=== PATIENT | female | born 1965 | race Caucasian/White ===

== ENCOUNTER 2022-08-10 13:42 | Outpatient (CLI) | payer OTHER, SELFPAY ==
--- NOTE | 2022-08-10 14:00 | CRLHL7_ITS ---
For Patients: As a result of the Century Cures Act, medical imaging exams and procedure reports are released immediately into your electronic medical record. You may view this report before your referring provider. If you have questions, please contact your health care provider. Indication: Splenic lesion Technique: Postcontrast CT abdomen and pelvis. 147 cc Isovue 370 intravenous contrast. Please note that all CT scans at this facility use dose modulation, iterative reconstruction, and/or weight-based dosing when appropriate to reduce radiation dose to as low as reasonably achievable. Comparison: 01/02/2022 Findings: Lung bases are clear. Stable low-attenuation lesion within the right hepatic lobe measuring 1.6 cm. Stable hypo dense splenic lesions measuring up to 3.1 cm. Small hiatal hernia. Pancreas normal. Normal gallbladder. Normal adrenal glands and right kidney. Stable punctate calcifications left kidney. Mildly prominent central mesenteric lymph nodes are similar. Normal uterus, ovaries and bladder. Tubal ligation devices. No bowel obstruction or free air. No free fluid. Stable appearance of the lower anterior abdominal wall. Degenerative changes lumbar spine at L4-5 and L2-3. Impression: No significant interval change in multiple splenic lesions measuring up to 3.1 cm. Stable benign-appearing intrahepatic lesion measuring 1.6 cm, hemangioma or cyst. No significant interval change in mildly prominent central mesenteric lymph nodes. Please note that all CT scans at this facility use dose modulation, iterative reconstruction, and/or weight-based dosing when appropriate to reduce radiation dose to as low as reasonably achievable. Dictated by Ismael Paez MD @ 08/13/2022 12:30:34 PM (Electronically Signed)
--- OUTSIDE RECORDS SUMMARY | 2022-08-10 14:14 | XMS_ITS | Clinical Summary ---
:1965 Author Organization [facility] [place] [address] Care Team Providers Name Role Phone Ismael Louise MD Primary Care Provider Allergies Active Allergy Reactions Severity Noted Date Comments Adhesive Tape-Silicones Hives 01/06/2012 Aspirin GI Upset 02/17/2019 Cat Dander Itching 01/06/2012 Metformin Diarrhea 09/16/2015 Azithromycin Rash 09/24/2014 Medications Medication Sig Dispensed Refills Start Date End Date Status valsartan-hydrochlor Take 1 tablet by 90 tablet 3 08/16/2020 Active othiazide (DIOVAN mouth once daily. HCT) 160-25 mg per tabletIndications: HTN (hypertension) apixaban (ELIQUIS) 5 Take 1 Tablet (5 60 Tablet 9 01/30/2022 Active mg mg) by mouth 2 tabletIndications: times daily. PAF (paroxysmal atrial fibrillation) (HC) furosemide (LASIX) Take 1 Tablet (20 5 Tablet 0 03/06/2022 Active 20 mg mg) by mouth once tabletIndications: daily. For 3 days SOB (shortness of for shortness of breath) breath. potassium chloride Take 1 Tablet (20 5 Tablet 0 03/06/2022 Active (KLOR-CON M20) 20 mEq) by mouth once mEq Extended-Release daily with a meal. tabletIndications: Only take this SOB (shortness of medication on the breath) days you take Lasix. sotaloL (BETAPACE) Take 1 Tablet (80 180 Tablet 1 04/07/2022 Active 80 mg mg) by mouth in the tabletIndications: morning and 1 PAF (paroxysmal Tablet (80 mg) in atrial fibrillation) the evening. (HC) Active Problems Problem Noted Date Skin lesion 04/20/2018 Personal history of colonic polyps 06/11/2016 Varicose veins of left leg with edema 05/22/2016 Lumbar disc herniation with radiculopathy 10/10/2015 HTN (hypertension) 09/24/2014 Obesity 09/24/2014 Immunizations Name Administration Dates Next Due Influenza, IIV4 06/24/2016 Tdap 09/16/2015 Family History Medical History Relation Name Comments Hypertension Father Cancer-breast Maternal Aunt 1 Cancer-breast Maternal Aunt 2 Cancer-breast Mother x2 Relation Name Status Comments Brother Alive x2 Daughter Alive x1 Father Alive Maternal Aunt 1 Maternal Aunt 2 Maternal Grandfather Maternal Grandmother Mother Alive Paternal Grandfather Paternal Grandmother Sister Alive x1 Social History Tobacco Use Types Packs/Day Years Used Date Never Smoker Smokeless Tobacco: Never Used Tobacco Cessation: Counseling Given: Yes Alcohol Use Standard Drinks/Week Comments Yes 0 (1 standard drink = 0.6 oz pure alcoho l) 1-2 drinks weekly Alcohol Habits Answer Date Recorded How often do you have a drink containing alcohol? Not asked How many drinks containing alcohol do you have on a Not aske d typical day when you are drinking? How often do you have six or more drinks on one Not asked occasion? Comment: 1-2 drinks weekly 12/25/2021 Sex Assigned at Date Recorded Not on file Obstetrics History Para Term AB IAB SAB Ectopic Multiple Living Live Births 2 1 1 1 1 1 Date Outcome GA Total Labor/2nd/3rd Weight Sex Delivery Anes PTL Amalia A 1 A5 Name Clin Labor Term SAB Last Filed Vital Signs Vital Sign Reading Time Taken Comments Blood Pressure 124/74 03/04/2022 10:30 AM CDT Pulse 60 03/04/2022 10:30 AM CDT Temperature 36 ??C (96.8 ??F) 03/04/2022 10:30 AM CDT Respiratory Rate 18 03/04/2022 10:30 AM CDT Oxygen Saturation 100% 03/04/2022 10:30 AM CDT Inhaled Oxygen Concentration - - Weight 140 kg (308 lb 9.6 oz) 03/04/2022 7:24 AM CDT Height 170.2 cm (5' 7) 03/04/2022 7:24 AM CDT Body Mass Index 48.33 03/04/2022 7:24 AM CDT Plan of Treatment Health Maintenance Due Date Last Done Comments HIV for age 15-65 1980 Hepatitis C screening for age 0905/25/1983 18-79 Zoster (shingles) series for age 0905/25/2015 50+ (1 of 2) Depression screening for age 12+ 04/02/2017 04/02/2016 Mammogram for age 45-75 05/22/2017 05/22/2016, 05/23/2015, 05/21/2014 COVID-19 vaccine series (3 - 02/15/2021 12/21/2020, 021 Booster for Pfizer series) Lipids for age 45-75 05/22/2021 05/22/2016, 05/02/2015 Influenza for age 50-64 05/07/2022 06/24/2016 BMI (ht and wt on same day) for 12/04/2022 12/04/2021, 06/0 11/2020, age 18+ 09/19/2020, Additional history exists Pap test for age 21-65 10/24/2024 10/24/2021, 10/24/2021, 03/06/2014 ([facility]) Tetanus booster 09/16/2025 09/16/2015 Colonoscopy through age 75 11/12/2026 11/12/2021, 6, 06/10/2016, Additional history exists Tdap Completed 09/16/2015 Results Not on filefrom Last 3 Months Insurance Payer Benefit Plan / Subscriber ID Effective Dates Phone Addre ss Type Group [employer] [id number] 2017-Presen [address] [place] [address] BLUE [employer]OSS [employer] OF [id number] 2014-Presen [address] [place] [address] (Home) [place], [place] [phone] (Work) Rohini Mckenna Personal/Family Self [address] (Home) [place] [phone] (Work) Advance Directives Latest Code Status on File Code Status Date Activated Date Inactivated Comments Full Code 03/04/2022 8:23 AM 03/04/2022 8:05 PM Code Status Discussion: Reviewed Preferences Full Code 11/12/2021 6:42 AM 11/12/2021 11:37 AM Code Status Discussion: Per Existing Order Full Code 10/14/2020 3:20 PM 10/15/2020 12:04 PM Code Status Discussion: Discussed Care Teams Gravel Wheeler Relationship Specialty Start Date End Date Ismael Louise MD PCP - General Family Practice 02/06/211999 [place] [address]
== END 2022-08-10 13:43 | disposition home or self-care (01) ==
LOC: CT 13:45
PROVIDERS: PCP Family Medicine; Visit Provider Family Medicine
DX: D73.89 Other diseases of spleen (principal); K76.9 Liver disease, unspecified
CPT/HCPCS: 74177; Q9967

== ENCOUNTER 2022-11-10 15:20 | Outpatient (CLI) | payer OTHER, SELFPAY ==
--- NOTE | 2022-11-10 15:40 | CRLHL7_ITS ---
For Patients: As a result of the Century Cures Act, medical imaging exams and procedure reports are released immediately into your electronic medical record. You may view this report before your referring provider. If you have questions, please contact your health care provider. BILATERAL SCREENING MAMMOGRAM WITH COMPUTER-AIDED DETECTION AND TOMOSYNTHESIS TECHNIQUE: CC and MLO views were obtained. These mammographic images have been obtained using full-field digital technique. These mammographic images were interpreted with the benefit of computer-aided detection. Breast Tomosynthesis was used in this interpretation. COMPARISON FILM: 09/19/21, 09/13/20, 07/11/19. FINDINGS: The breasts are almost entirely fatty IMPRESSION: There is no radiographic evidence for malignancy. ASSESSMENT: BI-RADS Category 2: Benign RECOMMENDATION: Routine screening mammogram in 1 year. A lay language report of this examination will be provided to the patient. Ismael Paez M.D. Diagnostic Radiologist [email or web address] KALLI/Dictated by: Ismael Paez MD @ 11/11/2022 11:30:00 AM (Electronically Signed)
== END 2022-11-10 15:21 | disposition home or self-care (01) ==
PROVIDERS: PCP Family Medicine; Visit Provider Family Medicine
DX: Z12.31 Encounter for screening mammogram for malignant neoplasm of breast (principal)
CPT/HCPCS: 77063; 77067

== ENCOUNTER 2022-11-17 08:29 | Outpatient (CLI) | payer OTHER, SELFPAY | END 2022-11-17 08:30 | disposition home or self-care (01) | LOC: NFLDREF 11-19 07:29 | PROVIDERS: PCP Family Medicine; Referring Provider Family Medicine; Visit Provider Family Medicine | DX: I10 Essential (primary) hypertension (principal); R53.83 Other fatigue; E66.01 Morbid (severe) obesity due to excess calories; R73.03 Prediabetes; I48.92 Unspecified atrial flutter; Z13.6 Encounter for screening for cardiovascular disorders | CPT/HCPCS: 80048; 80061; 84443; 85025 ==

== ENCOUNTER 2023-11-04 08:45 | Outpatient (CLI) | payer OTHER, SELFPAY | END 2023-11-04 08:46 | disposition home or self-care (01) | LOC: NFLDREF 11-19 13:04 | PROVIDERS: PCP Family Medicine; Referring Provider Family Medicine; Visit Provider Obstetrics & Gynecology | DX: Z01.419 Encounter for gynecological examination (general) (routine) without abnormal findings (principal); Z13.6 Encounter for screening for cardiovascular disorders | CPT/HCPCS: 80061 ==

== ENCOUNTER 2023-11-12 08:00 | Outpatient (CLI) | payer OTHER, SELFPAY ==
--- NOTE | 2023-11-12 08:15 | MM_ITS ---
Patient: LELAND ORTIZ Facility:?[facility] Patient ID:?[id number] Site Patient ID:?[id number]. Site :?1965 Study:?XRay-Breast Bilateral 3D screening mammogram w/cad-11/12/2023 8:51:28 AM Ordering Physician:ALESSANDRA Final Report: BILATERAL SCREENING MAMMOGRAM WITH COMPUTER-AIDED DETECTION AND TOMOSYNTHESIS TECHNIQUE: CC and MLO views were obtained. These mammographic images have been obtained using full-field digital technique. These mammographic images were interpreted with the benefit of computer-aided detection. Breast Tomosynthesis was used in this interpretation. COMPARISON FILM: 11/10/22, 09/19/21, 09/13/20. FINDINGS: The breasts are almost entirely fatty. IMPRESSION: There is no radiographic evidence for malignancy. ASSESSMENT: BI-RADS Category 2: Benign RECOMMENDATION: Routine screening mammogram in 1 year. A lay language report of this examination will be provided to the patient. Ismael Paez M.D. Diagnostic Radiologist [email or web address] DSM/sp R& Transcribed: 3:10 p.m. SP/Dictated by: Ismael Paez MD @ 11/12/2023 1:08:00 PM Signed by:?Ismael Paez MD @11/12/2023 3:54:29 PM (Electronic Signature)
== END 2023-11-12 08:01 | disposition home or self-care (01) ==
LOC: MAMMO 08:01
PROVIDERS: PCP Family Medicine; Visit Provider Family Medicine
DX: Z12.31 Encounter for screening mammogram for malignant neoplasm of breast (principal)
CPT/HCPCS: 77063; 77067

== ENCOUNTER 2023-12-29 08:30 | Outpatient (CLI) | payer OTHER, SELFPAY ==
--- OUTSIDE RECORDS SUMMARY | 2023-12-29 08:33 | XMS_ITS | Referral Summary ---
Author Name Unknown Organization [facility] Address [address] [place] [address] Care Team Providers Care Psychodramatist Name Role Phone Elsewhere, Pcp Primary Care Provider Unavailabl e Source Comments Patient records contain information from all sites at [facility]. For routine questions regarding patient records, call [phone] during business hours, M-F 8:00 AM - 5:00 PM Central Time. Record requests for emergency care only can be directed to [phone] at any time.[facility] Encounters Date Type Department Care Team Description 12/18/2023 CPAP Download Remote Patient Monitoring [facility] [address] [place] [address] [facility], Provider 11/17/2023 CPAP Download Remote Patient Monitoring [facility] [address] [place] [address] [facility], Provider 10/17/2023 CPAP Download Remote Patient Monitoring [facility] [address] [place] [address] [facility], Provider from Last 3 Months Allergies Active Allergy Reactions Criticality Noted Date Comments Adhesive Tape-Silicones Hives (Reselect Reaction) 01/06/2012 Aspirin GI intolerance Medium 09/19/2018 Stomach upset Other reaction(s): GI Upset Azithromycin Rash 01/27/2012 achy joints Cat Dander Itching 01/06/2012 Metformin Diarrhea 09/16/2015 Medications Medication Sig Dispensed Refills Start Date End Date Status acetaminophen (TYLENOL) 500 mg tablet Take 500 mg by mouth 2 (two) times a day as needed. Active Eliquis 5 mg tablet Take 5 mg by mouth 2 (two) times a day. Active metoprolol tartrate (LOPRESSOR) 50 mg tablet Take 25 mg by mouth. 05/05/2023 Active valsartan-hydroCHLOROt hiazide (DIOVAN-HCT) 320-25 mg per tablet Take 1 tablet by mouth daily. Active Active Problems Problem Noted Date Diagnosed Date Aurist (Current) Anticoagulant Treatment 03/06 Monitoring For Therapeutic Drug Therapy [Z51.81] 01/31/2019 Atrial Fibrillation Unspecified 01/27/2019 Anticoagulant Therapy 01/27/2019 Hypertension Essential Primary 01/18/2010 Overview: Hypertension Gout Carpal Tunnel Syndrome Bilateral Overview: treated conservatively Varicose Vein Lower Extremity With Pain Bilatera l Immunizations Name Administration Dates Next Due DT, Pediatric 09/22/2006 Influenza (IM) Preservative Free 06/15/2018 Influenza, Injectable, Quadrivalent 06/07,06/24/2016,06/26/2015,2013 Influenza, Unspecified 06/24/2016 Tdap 09/16/2015 influenza vaccine quad (FLUZONE/FLUARIX) (6 months and older)(PF) 06/21/2019 Social History Tobacco Use Types Packs/Day Years Used Date Smoking Tobacco: Never Smokeless Tobacco: Never Tobacco Cessation:Counseling Given: Not Answered Alcohol Use Standard Drinks/Week Comments Yes 1 (1 standard drink = 0.6 oz pur e alcohol) Humiliation, Afraid, Rape, and Kick questionnair e Answer Date Recorded Fear of Current or Ex-Partner No Emotionally Abused No 07/11/2019 Physically Abused No 07/11/2019 Sexually Abused Not on file 07/11/2019 Social Connection and Isolat ion Panel [NHANES] Answer Date Recorded Frequency of Communication w ith Friends and Family More than three times a week 07/11/2019 Frequency of Social Gatherin gs with Friends and Family More than three times a week 07/11/2019 Attends Quaker Services More than 4 times per year 07/11/2019 Active Member of Clubs or Organizations Yes 07/11/2019 Attends Club or Organization Meetings More than 4 times per year 07/11/2019 Marital Status 07/11/2019 AUDIT-C Answer Date Recorded Frequency of Alcohol Consumption 2-4 times a wed07/11/2019 Average Number of Drinks 1 or 2 019 Frequency of Binge Drinking Never 01/2019 Overall Financial Resource Strain (CARDIA) Answe r Date Recorded Difficulty of Paying Living Expenses Not very hernandez rd 07/11/2019 PHQ-2 Answer Date Recorded PHQ-2 Score 0 11/14/2019 [facility] Occupat ional Health - Occupational Stress Questionnaire Answer Date Recorded Feeling of Stress Not at all 07/11/2019 Exercise Vital Sign Answer Date Recorde d Days of Exercise per Week 3 days 2018 Minutes of Exercise per Session 40 min 07/11/2019 Hunger Vital Sign Answer Date Recorded Worried About Running Out of Food in the Last Ye ar Never true 07/11/2019 Ran Out of Food in the Last Year Never true 07/11/2019 PRAPARE - Transportation Answer Date Re corded Lack of Transportation (Medical) No 07/11/2019 Lack of Transportation (Non-Medical) No 07/11/2019 Nutrition Answer Date Recorded Nutrition: EVOO Fat Source Unknown 10/29 Nutrition: Servings of Fruits/Vegetables per Day Not on file 10/29/2020 Dental Answer Date Recorded Dental: Regular Dentist Unknown 10/29/19 21 Education Answer Date Recorded What is the highest level of school you have completed or the highest degree you have received? Associate degree: occupational, technical, or vocational program 07/11/2019 Sex and Gender Information Value Date Recorded Sex Assigned at Female 09/19/2018 9:28 AM WARRANT SERVER Gender Identity Female 09/19/2018 9:28 AM WARRANT SERVER Sexual Orientation Straight 09/19/2018 9: 28 AM WARRANT SERVER Last Filed Vital Signs Vital Sign Reading Time Taken Comments Blood Pressure 130/72 11/14/2019 4:04 PM CDT Pulse 68 11/14/2019 4:04 PM CDT Temperature 36.4 ??C (97.5 ??F) 11/14/2019 4:04 PM CD T Respiratory Rate 18 11/14/2019 4:04 PM CDT Oxygen Saturation 98% 06/08/2019 11:14 AM CDT Inhaled Oxygen Concentration - - Weight 134 kg (294 lb 15.6 oz) 08/17/2023 9:59 A M WARRANT SERVER Height 171 cm (5' 7.32) 08/17/2023 9:59 AM WARRANT SERVER Body Mass Index 45.76 08/17/2023 9:59 AM WARRANT SERVER Plan of Treatment Not on file Medical Devices Implanted Type Area Gaming Manager Device Identifier Shelf Expiration Date Model / Serial / Lot Hardware E.G. Pins/Screws/R ods Hardware e.g. pins/screws/ rods Left: Ankle Description:2 screws in left ankle Procedures Procedure Name Priority Date/Time Associated Diagnosis Comments EXTI BASIC METABOLIC PANEL, S/P Routine 05/05/2023 6:21 AM CDT BI BREAST SCREENING BILATERAL RAD - Routine (most inpatients and all outpatients) 07/11/2019 2:48 PM WARRANT SERVER Screening Mammogram Breast Cancer THINPREP DIAGNOSTIC HPV REFLEX Routine 06/29/2018 9:48 AM CDT Abnormal Pap Smear Cervix LIPID PANEL, S Routine 06/29/2018 9:36 AM CDT Screening Lipid from Last 3 Months or Most Recently Relevant to Health Maintenance Results * BI Breast Screening Bilateral (07/11/2019 2:48 PM WARRANT SERVER) Anatomical Region Laterality Modality Breast, Breast Imaging RST L OS, Breast Imaging ARZ LOS, Breast Imaging FLA LOS Bilateral Mammography 07/11/2019 3:39 PM WARRANT SERVER Impressions 07/11/2019 3:40 PM WARRANT SERVER Negative. RECOMMENDATION: ??Annual Screening Mammogram ASSESSMENT: ??BI-RADS: 1: Negative. Narrative 07/11/2019 3:40 PM WARRANT SERVER EXAM: ??BI BREAST SCREENING BILATERAL Current study was evaluated with a Computer Aided Detection (CAD) system. INDICATION: ??Screening mammogram. COMPARISON: ??Prior exam(s) were available and reviewed for comparison. DENSITY: ??b. There are scattered areas of fibroglandular density. FINDINGS: ??No mammographic findings of malignancy. Procedure Note Karina Laughlin M.D. - 07/11/2019 EXAM: BI BREAST SCREENING BILATERAL Current study was evaluated with a Computer Aided Detection (CAD) system. INDICATION: Screening mammogram. COMPARISON: Prior exam(s) were available and reviewed for comparison. DENSITY: b. There are scattered areas of fibroglandular density. FINDINGS: No mammographic findings of malignancy. IMPRESSION: Negative. RECOMMENDATION: Annual Screening Mammogram ASSESSMENT: BI-RADS: 1: Negative. Kailey BUSTAMANTEG BI P ROCEDURES * ThinPrep Diagnostic HPV Reflex (06/29/2018 9:48 AM CDT) 07/04/2018 9:02 AM T [facility] Report electronically signed by KATERIN Peterson(ASCP) I verify that I have examined all relevant slides/materials for the specimen(s) and rendered or confirmed the diagnosis. 07/04/2018 9:02 AM T [facility] Gross Description Received specimen in a ThinPrep vial. 07/04/2018 9:02 AM T [facility] Pap Test Source Cervical/Endocervi [place]ber[place] 07/04/2018 9:02 AM T [facility] Clinical History ablation 07/04/20 9:02 AM T [facility] Menstrual Status(LMP, PM, ) ablation 07/04/2018 9:02 AM T [facility] Hormone Therapy/Contracep tives none 07/04/2018 9:02 AM T [facility] Interpretation Cervical/Endocervi [place]ber[place] ??(ThinPrep): Satisfactory for Evaluation Endocervical/trans formation zone components absent Negative for Intraepithelial Lesion or Malignancy High Risk HPV Testing results are NEGATIVE. HPV by Dry Mixer-Medi ated Amplification ??(TMA) for E6/E7 viral messenger RNA (mRNA) is an in-vitro diagnostic test for the detection of 14 high-risk Human Papilloma (HPV) types (16, 18, 31, 33, 35, 39, 45, 51, 52, 56, 58, 59, 66, and 68) in cervical specimens. Additional testing performed at [facility], [address] [place] [address]. 07/04/2018 9:02 AM [facility] Varies (Cervix/Endocerv ix) 06/29/2018 9:48 AM CDT 06/29/2018 2:04 PM CDT Kailey Osei M.D. LAB PAP PATHDX ORDERABLES [facility] [address] [place] [address], [facility] * Lipid Panel (06/29/2018 9:36 AM CDT) Cholesterol, Total 192 mg/dL 2017 1:52 PM CDT [facility] Comment: ----REFERENCE VALUE---- Desirable: < 200 Borderline high: 200 - 239 High: > or = 240 Triglycerides 139 mg/dL 06/29/2018 1:52 PM CDT [facility] Comment: ----REFERENCE VALUE---- Normal: <150 Borderline high: 150-199 High: 200-499 Very high: > or =500 Cholesterol, HDL, S 51 >=50 mg/dL 06/29/2018 1:52 PM CDT [facility] Calculated LDL 113 mg/dL 06/29/2018 1:52 PM CDT [facility] Comment: ----REFERENCE VALUE---- Desirable: <100 Above Desirable: 100-129 Borderline high: 130-159 High: 160-189 Very high: > or =190 Cholesterol, Non-HDL, Calculated 141 mg/dL 06/29/2018 1:52 PM CDT [facility] Comment: ----REFERENCE VALUE---- Desirable: <130 Above Desirable: 130-159 Borderline high: 160-189 High: 190-219 Very high: > or =220 Blood (Blood, Venous) 06/29/2018 9:36 AM CDT 06/29/2018 1:04 PM CDT Kailey Osei M.D. LAB BLOO D ADD-ON [facility] [address] [place] [address], [facility] from Last 3 Months or Most Recently Relevant to Health Maintenance Care Teams Psychodramatist Relationship Specialty Start Date End Date Elsewhere, Pcp PCP - General Family Medicine 06/23/21
--- OUTSIDE RECORDS SUMMARY | 2023-12-29 08:33 | XMS_ITS ---
Author Name Unknown Organization [facility] Address [address] [place] [address] Care Team Providers Care Orthopedic Physician Name Role Phone Unavailable Unavailable Unavailable Surgery Details Not on file Complications Check Surgery Details section. Procedure Estimated Blood Loss Check Surgery Details section. Procedure Findings Check Surgery Details section. Procedure Specimens Taken Check Surgery Details section.
--- OUTSIDE RECORDS SUMMARY | 2023-12-29 08:33 | XMS_ITS | Encounter Summary ---
Author Name Unknown Organization [facility] Address [address] [place] [address] Care Team Providers Care House Director Name Role Phone Elsewhere, Pcp Primary Care Provider Unavailabl e Encounter Details Date Type Department Care Team (Late st Contact Info) Description 11/17/2023 CPAP Download Remote Patient Monitoring [facility] [address] [place] [address] [facility], Provider Social History Tobacco Use Types Packs/Day Years Used Date Smoking Tobacco: Never Smokeless Tobacco: Never Alcohol Use Standard Drinks/Week Comments Yes 1 [...] than three times a week 07/11/2019 Attends Gnosticism Services More than 4 times per year [...] Answer Date Recorded PHQ-2 Score 0 11/14/2019 [facility] [place] of Occupat ional Health - Occupational Stress [...] Date Recorded Dental: Regular Dentist Unknown 10/29/19 Education Answer Date Recorded What is the highest level of school you have completed or the highest degree you have received? Associate degree: occupational, technical, or vocational program 07/11/2019 Sex and Gender Information Value Date Recorded Sex Assigned at Female 09/19/2018 9:28 AM LIFE COACH Gender Identity Female 09/19/2018 9:28 AM LIFE COACH Sexual Orientation Straight 09/19/2018 9: 28 AM LIFE COACH documented as of this encounter Plan of Treatment Not on file documented as of this encounter Visit Diagnoses Not on filedocumented in this encounter Additional Health Concerns Assessment Noted Time PHQ-9 Depression Total Score: 3 06/08/20 17 8:25 AM CDT documented as of this encounter Care Teams House Director Relationship Specialty Start Date End Date Elsewhere, Pcp PCP - General Family Medicine 06/23/21 documented as of this encounter
--- OUTSIDE RECORDS SUMMARY | 2023-12-29 08:33 | XMS_ITS | Encounter Summary ---
Author Name Unknown Organization [facility] Address [address] [place] [address] Care Team Providers Care Policy Writer Name Role Phone Elsewhere, Pcp Primary Care Provider Unavailabl e Encounter Details Date Type Department Care Team (Late st Contact Info) Description 09/16/2023 CPAP Download Remote Patient Monitoring [facility] [address] [place] [address] [facility], Provider Social History Tobacco Use Types Packs/Day [...] than three times a week 07/11/2019 Attends [employer] Services More than 4 times per year [...] Answer Date Recorded PHQ-2 Score 0 11/14/2019 [facility] [place] of Occupat ional Health - Occupational Stress [...] Sex Assigned at Female 09/19/2018 9:28 AM MRI SPECIAL PROCEDURES TECHNOLOGIST Gender Identity Female 09/19/2018 9:28 AM MRI SPECIAL PROCEDURES TECHNOLOGIST Sexual Orientation Straight 09/19/2018 9: 28 AM MRI SPECIAL PROCEDURES TECHNOLOGIST documented as of this encounter Plan of Treatment Not on file documented as of this encounter Visit Diagnoses Not on filedocumented in this encounter Additional Health Concerns Assessment Noted Time PHQ-9 Depression Total Score: 3 06/08/20 17 8:25 AM CDT documented as of this encounter Care Teams Policy Writer Relationship Specialty Start Date End Date Elsewhere, Pcp PCP - General Family Medicine 06/23/21 documented as of this encounter
--- OUTSIDE RECORDS SUMMARY | 2023-12-29 08:33 | XMS_ITS | Encounter Summary ---
Author Name Unknown Organization [facility] Address [address] [place] [address] Care Team Providers Care Thread Trimmer Name Role Phone Elsewhere, Pcp Primary Care Provider Unavailabl e Encounter Details Date Type Department Care Team (Late st Contact Info) Description 10/17/2023 CPAP Download Remote Patient Monitoring [facility] [address] [place] [address] [facility], Provider Social History Tobacco Use Types Packs/Day [...] than three times a week 07/11/2019 Attends [employer] Services More than 4 times per year [...] Answer Date Recorded PHQ-2 Score 0 11/14/2019 [facility] [place] of Occupat ional Health - Occupational Stress [...] Sex Assigned at Female 09/19/2018 9:28 AM SOA ARCHITECT Gender Identity Female 09/19/2018 9:28 AM SOA ARCHITECT Sexual Orientation Straight 09/19/2018 9: 28 AM SOA ARCHITECT documented as of this encounter Plan of Treatment Not on file documented as of this encounter Visit Diagnoses Not on filedocumented in this encounter Additional Health Concerns Assessment Noted Time PHQ-9 Depression Total Score: 3 06/08/20 17 8:25 AM CDT documented as of this encounter Care Teams Thread Trimmer Relationship Specialty Start Date End Date Elsewhere, Pcp PCP - General Family Medicine 06/23/21 documented as of this encounter
--- OUTSIDE RECORDS SUMMARY | 2023-12-29 08:33 | XMS_ITS | Clinical Summary ---
Author Name Unknown Organization [facility] Address [place], [place] [address] Care Team Providers Care Lay Health Advocate Name Role Phone Ismael Louise MD Primary Care Provider + Allergies Active Allergy Reactions Criticality Noted Date Comments Adhesive Tape-Silicones Hives 01/06/2012 Aspirin GI Upset 02/17/2019 Cat Dander Itching 01/06/2012 Metformin Diarrhea 09/16/2015 Azithromycin Rash 09/24/2014 Medications Medication Sig Dispensed Refills Start Date End Date Status apixaban (ELIQUIS) 5 mg tabletIndications: PAF (paroxysmal atrial fibrillation) (HC) Take 1 Tablet (5 mg) by mouth 2 times daily. 60 Tablet 9 01/30/2022 Active valsartan-hydrochl orothiazide (DIOVAN HCT) 320-25 mg per tablet Take 1 Tablet by mouth once daily. 11/17/2022 Active acetaminophen (Tylenol Extra Strength) 500 mg tablet Take 500 mg by mouth 2 times daily if needed. Max acetaminophen dose: 4000mg in 24 hrs. Active metoprolol tartrate (LOPRESSOR) 25 mg tabletIndications: S/P ablation of atrial fibrillation Take 1 Tablet (25 mg) by mouth two times daily. 180 Tablet 2 09/28/2023 Active Active Problems Problem Noted Date Diagnosed Date Skin lesion 04/20/2018 Personal history of colonic polyps 06/11/2016 Varicose veins of left leg with edema 05/22/2016 Lumbar disc herniation with radiculopathy 2015 HTN (hypertension) 09/24/2014 Obesity 09/24/2014 Immunizations Name [...] Never Smokeless Tobacco: Never Tobacco Cessation:Counseling Given: Yes Alcohol Use Standard Drinks/Week Comments Yes 0 (1 standard drink = 0.6 oz pur e alcohol) 1-2 drinks weekly Social Connections Answer Date Recorded Frequency of Communication with Friends and Fami ly Not on file 09/03/2021 Financial Resource Strain Answer Date R ecorded Difficulty of Paying Living Expenses Not on file 09/03/2021 Difficulty of Paying Living Expenses Not on file 09/03/2021 Sex and Gender Information Value Date Recorded Sex Assigned at Not on file Gender Identity Not on file Sexual Orientation Not on file Obstetrics History Para Term AB IAB SAB Ectopic Multiple Livin g Live Births 2 1 1 1 1 1 Date Outcome GA Total Labor Labor/2nd/3rd Weight Sex Delivery Anes PTL Amalia A1 A5 Name Cl in Term SAB Last Filed Vital Signs Vital Sign Reading Time Taken Comments Blood Pressure 116/64 06/24/2023 1:20 PM CDT Pulse 76 06/24/2023 1:20 PM CDT Temperature 36.6 ??C (97.9 ??F) 05/05/2023 10:49 AM C DT Respiratory Rate 18 05/05/2023 11:45 AM CDT Oxygen Saturation 96% 06/24/2023 1:20 PM CDT Inhaled Oxygen Concentration - - Weight 149.7 kg (330 lb) 06/24/2023 1:20 PM CDT Height 171.5 cm (5' 7.5) 06/24/2023 1:20 PM CDT Body Mass Index 50.92 06/24/2023 1:20 PM CDT Plan of Treatment Health Maintenance Due Date Last Done Comments HIV for age 15-65 1980 Hepatitis C screening for age 18-79 1983 Zoster (shingles) series for age 50+ (1 of 2) 2015 Depression screening for age 12+ 04/02/2017 04/02/2016 Mammogram for age 45-75 05/22/2017 05/22/20 16, 05/23/2015, 05/21/2014 Lipids for age 45-75 05/22/2021 05/22/2016, 05/02/20 15 COVID-19 vaccine series ( season) 2023 12/21/2020, 11/30/2020 Influenza for age 50-64 05/07/2024 06/24/2016 BMI (ht and wt on same day) for age 18+ 06/24/2024 06/24/2023, 12/04/2021, 02/06/2021, Additional history exists Pap test for age 21-65 10/24/2024 , 10/24/2021, 03/06/2014 (Completed outside of [facility]) Tetanus booster 09/16/2025 09/16/2015 Colonoscopy through age 75 11/12/202611/12, 06/10/2016, 06/10/2016, Additional history exists Tdap Completed 09/16/2015 Pneumococcal series for age 6-64 Aged Out No longer eligible based on patient's age to complete this topic Procedures Procedure Name Priority Date/Time Associated Diagnosis Comments COLONOSCOPY 11/12/2021 7:24 AM ORIGINATION SPECIALIST HPV THIN PREP Routine 10/24/2021 10:15 AM ORIGINATION SPECIALIST XR MAMMO BILAT SCREEN FFDM (IA) Routine 05/22/2016 10:03 AM CDT Visit for screening mammogram LIPID PANEL W REFLEX MEASURED LDL Routine 05/22/2016 9:51 AM CDT Routine general medical examination at health care facility from Last 3 Months or Most Recently Relevant to Health Maintenance Results * COLONOSCOPY (11/12/2021 7:24 AM ORIGINATION SPECIALIST) 11/12/2021 7:24 AM ORIGINATION SPECIALIST Narrative Transcriptions Bryce Hernandez MD - 11/12/2021 9:04 AM CST Patient Name: Rohini Mckenna Procedure Date: 11/12/2021 Gender: Female Date of : 1965 Admit Type: Ambulatory Procedure: Colonoscopy Proceduralist: Bryce Smith [facility] Indications/Pre-Op Diagnosis: High risk colon cancer surveillance:Personal history of colonic polyps Medications: Midazolam 8 mg IV, Fentanyl 100 microgramsIV Procedure Description: The patient had risks, benefits and alternatives explained to andgave informed consent. The patient had a stable cardiopulmonary status and judged an adequate candidate for conscious sedation. The colonoscope was passed through the anus and advanced to thececum, identified by appendiceal orifice and ileocecal valve. Thecolonoscopy was performed without difficulty. The patient tolerated the procedure well. The quality of the bowel preparation was good. The ileocecal valve, appendiceal orifice, and rectum were photographed. Complications: No immediate complications. Estimated Blood Loss & Specimen: Estimated blood loss: none. Specimen collected - Yes and sent to Laboratory Findings: The perianal and digital rectal examinations were normal. Two sessile polyps were found in the cecum. The polyps were 2 to 6 mmin size. These polyps were removed with a hot snare. Resection and retrieval were complete. A 5 mm polyp was found in the mid ascending colon. The polyp was sessile. The polyp was removed with a hot snare. Resection andretrieval were complete. A 5 mm polyp was found in the hepatic flexure. The polyp was sessile. The polyp was removed with a hot snare. Resection and retrieval were complete. A 4 mm polyp was found in the sigmoid colon mid sigmoid colon. Thepolyp was sessile. The polyp was removed with a cold biopsy forceps.Resection and retrieval were complete. Impressions/Post-Op Diagnosis: - Two 2 to 6 mm polyps in the cecum, removed with a hot snare.Resected and retrieved. - One 5 mm polyp in the mid ascending colon, removed with a hotsnare. Resected and retrieved. - One 5 mm polyp at the hepatic flexure, removed with a hot snare. Resected and retrieved. - One 4 mm polyp in the sigmoid colon in the mid sigmoid colon,removed with a cold biopsy forceps. Resected and retrieved. Recommendation: - Await pathology results. - Repeat colonoscopy in 5 years for surveillance. Moderate Sedation: Moderate (conscious) sedation was administered by the endoscopy nurse and supervised by the endoscopist. The following parameters were monitored: oxygen saturation, heart rate, respiratory rate, adequacyof pulmonary ventilation and reponse to care. Please refer to the patient's medical record flowsheets for moderate sedation details. Moderate (conscious) sedation was administered by the endoscopy nurse and supervised by the endoscopist. The patient's oxygen saturation, heart rate, blood pressure and response to care were monitored. Total physician intraservice time was 38 minutes. Bryce Hernandez, 11/12/2021 9:04:42 AM This report has been signed electronically. Note Initiated On: 11/12/2021 7:24 AM Bryce Hernandez MD PROCEDURE ORD * HPV HIGH RISK (10/24/2021 10:15 AM ORIGINATION SPECIALIST) TYPE 16 Negative Negative 10/28/2021 11:41 AM ORIGINATION SPECIALIST [facility] [employer] [facility] TYPE 18 Negative Negative 10/28/2021 11:41 AM ORIGINATION SPECIALIST [facility] OTHER HIGH RISK TYPES Negative Negative 10/28/2021 11:41 AM ORIGINATION SPECIALIST [facility] Other (Cervical/Vagina l) 10/24/2021 10:15 AM ORIGINATION SPECIALIST 10/27/2021 8:13 AM ORIGINATION SPECIALIST Narrative [facility] - 10/28/2021 11:41 AM ORIGINATION SPECIALIST HPV types 16, 18, 31, 33, 35, 39, 45, 51, 52, 56, 58, 59, 66 and 68 DNA were undetectable or below the pre-set threshold. Methodology: Lisa Bishop 4800 HPV Test Tracie Guerin MD MICROBIOLOGY [facility] [address] [place] [address], [place] * XR MAMMO BILAT SCREEN FFDM (05/22/2016 10:03 AM CDT) Anatomical Region Laterality Modality BREASTS, Breast Left, Breast Right Bilateral Mammography Impressions 05/22/2016 2:37 PM CDT ??There is no radiographic evidence for malignancy. ??Recommend annual mammograms. A lay language report of this examination will be provided to the patient. MAMMOGRAM ASSESSMENT: ??ACR 2 Benign Narrative 05/22/2016 2:37 PM CDT XR MAMMO BILAT SCREEN FFDM [G0202.0] CLINICAL HISTORY: ??This is an asymptomatic 50 y.o. patient. INDICATION FOR EXAM: Mammogram Screening. TECHNIQUE: CC & MLO views were obtained. ??This digital study was evaluated with the assistance of Computer-Aided Detection. COMPARISON FILMS: Yes 05/23/15 [facility] FINDINGS: ??Mammographically, the breast tissue is almost entirely fat. ??No suspicious masses or microcalcifications. ??Benign appearing calcifications within left breast. Alma Li MD MAMMO * (ABNORMAL) LIPID PANEL W REFLEX MEASURED LDL (DOD1101) (05/22/2016 9:51 AM CDT) CHOLESTEROL,TOTAL 197 100 - 199 mg/dL 05/22/2016 11:45 AM CDT [facility] TRIGLYCERIDES 108 <150 mg/dL 05/22/2016 11:45 AM CDT [facility] HDL CHOLESTEROL 46 >40 mg/dL 05/22/2016 11:45 AM CDT [facility] NON-HDL CHOLESTEROL 151(H) <145 mg/dl 05/22/2016 11:45 AM CDT [facility] CHOL/HDL RATIO 4.28 <4.50 05/22/2016 11:45 AM CDT [facility] LDL CHOLESTEROL 129 <=130 mg/dL 05/22/2016 11:45 AM CDT [facility] PATIENT STATUS NOT GIVEN 05/22/2016 11:45 AM CDT [facility] Blood BLOOD SPECIMEN / Unknown Butterfly / Unknown 05/22/2016 9:51 AM CDT 05/22/2016 9:51 AM CDT Vidya Washington DOPE MAINTENANCE WORKER CHEMISTRY [facility] [address] [place] [address] from Last 3 Months or Most Recently Relevant to Health Maintenance Advance Directives * Full Code (Latest Code Status on File) Date Activated Date Inactivated Comments 05/05/2023 10:46 AM 05/05/2023 7:54 PM Question Answer Comments Code Status Discussion: Reviewed Preferences * Full Code Date Activated Date Inactivated Comments 04/19/2023 10:53 AM 04/19/2023 2:46 PM Question Answer Comments Code Status Discussion: Reviewed Preferences * Full Code Date Activated Date Inactivated Comments 04/06/2023 8:37 AM 04/06/2023 11:38 AM Question Answer Comments Code Status Discussion: Reviewed Preferences * Full Code Date Activated Date Inactivated Comments 03/25/2023 8:42 AM 03/25/2023 12:10 PM Question Answer Comments Code Status Discussion: Other * Full Code Date Activated Date Inactivated Comments 12/30/2022 10:20 AM 12/30/2022 6:57 PM Question Answer Comments Code Status Discussion: Reviewed Preferences Care Teams Lay Health Advocate Relationship Specialty Start Date End Date Ismael Louise MD [address] [place] [address] PCP - General Family Practice 02/06/21
--- OUTSIDE RECORDS SUMMARY | 2023-12-29 08:33 | XMS_ITS | Clinical Summary ---
Author Name Unknown Organization [facility] Address [address] [place] [address] Care Team Providers Care School Athletic Director Name Role Phone Elsewhere, Pcp Primary Care Provider Unavailabl e Source Comments Patient records contain information from all sites at [facility]. For routine questions regarding patient records, call [phone] during business hours, M-F 8:00 AM - 5:00 PM Central Time. 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) Anticoagulant Treatment 03/06 Monitoring For Therapeutic Drug Therapy [Z51.81] 01/31/2019 Atrial Fibrillation Unspecified 01/27/2019 Anticoagulant Therapy 01/27/2019 Hypertension Essential Primary 01/18/2010 Overview: Hypertension Gout Carpal Tunnel Syndrome Bilateral Overview: treated conservatively Varicose Vein Lower Extremity With Pain Bilatera l Encounters Date Type Department Care Team Description 12/18/2023 CPAP Download Remote Patient Monitoring [facility] [address] [place] [address] [facility], Provider 11/17/2023 CPAP Download Remote Patient Monitoring [facility] [address] [place] [address] [facility], Provider 10/17/2023 CPAP Download Remote Patient Monitoring [facility] [address] [place] [address] [facility], Provider from Last 3 Months Immunizations Name Administration Dates Next Due DT, Pediatric 09/22/2006 Influenza (IM) Preservative Free 06/15/2018 Influenza, Injectable, Quadrivalent 06/07,06/24/2016,06/26/2015,2013 Influenza, Unspecified 06/24/2016 Tdap 09/16/2015 influenza vaccine quad (FLUZONE/FLUARIX) (6 months and older)(PF) 06/21/2019 Family History Medical History Relation Name Comments Hypertension Brother 1 rosalinda No Known Problems Brother 2 letty Atrial fibrillation Father Hypertension Father Breast cancer Mother breast cancer three times t hree times.?Had recurrence within 6 months of stopping tamoxifen. Diabetes Mother breast cancer three times Hyperlipidemia Mother breast cancer three times Hyperlipidemia NOS Mother breast cancer three ti mes Hypertension Sister elbert Relation Name Status Comments Brother 1 rosalinda Brother 2 letty Alive Father Mother breast cancer three times Sister elbert Social History Tobacco Use Types Packs/Day Years [...] than three times a week 07/11/2019 Attends [employer] Services More than 4 times per year 07/11/2019 Active Member of Clubs or Organizations Yes 07/11/2019 Attends Club or Organization Meetings More than 4 times per year 07/11/2019 Marital Status 07/11/2019 AUDIT-C Answer Date Recorded Frequency of Alcohol Consumption 2-4 times a mon th 07/11/2019 Average Number of Drinks 1 or 2 019 Frequency of Binge Drinking Never 01/2019 Overall Financial Resource Strain (CARDIA) Answe r Date Recorded Difficulty of Paying Living Expenses Not very hernandez rd 07/11/2019 PHQ-2 Answer Date Recorded PHQ-2 Score 0 11/14/2019 [facility] [place] of Occupat ional Health - Occupational Stress [...] Sex Assigned at Female 09/19/2018 9:28 AM COMMERCIAL AIRPLANE PILOT Gender Identity Female 09/19/2018 9:28 AM COMM[employer] AIRPLANE PILOT Sexual Orientation Straight 09/19/2018 9: 28 AM COMM[employer]CIAL AIRPLANE PILOT Last Filed Vital Signs Vital Sign Reading Time Taken Comments Blood Pressure 130/72 11/14/2019 4:04 PM CDT Pulse 68 11/14/2019 4:04 PM CDT Temperature 36.4 ??C (97.5 ??F) 11/14/2019 4:04 PM CD T Respiratory Rate 18 11/14/2019 4:04 PM CDT Oxygen Saturation 98% 06/08/2019 11:14 AM CDT Inhaled Oxygen Concentration - - Weight 134 kg (294 lb 15.6 oz) 08/17/2023 9:59 A M [employer] Height 171 cm (5' 7.32) 08/17/2023 9:59 AM [employer] Body Mass Index 45.76 08/17/2023 9:59 AM [employer] Plan of Treatment Health Maintenance Due Date Last Done Comments CT Colonography 1965 Cologuard 1965 FIT 1965 HIV Screening 1965 Hepatitis C Screening 1965 Office Visit for Blood Pressure Check / Re-check 1965 Hepatitis B Vaccines (1 of 3 - 19+ 3-dose series) 1984 Mammogram 07/11/2020 07/11/2019, 06/07, 06/08/2017, Additional history exists COVID-19 Vaccine (2022- season) 2023 12/21/2020, 11/30/2020 Cervical Cancer Screening 06/29/20232017, 06/29/2018, 06/08/2017, Additional history exists Lipid (Cholesterol) Screening 06/29/2023 06/29/2018, 06/16/2017, 03/21/2014 Depression Screening (Annual PHQ-2) 09/06/2023 Creatinine Level (Kidney Function Test) 05/05/2024 05/05/2023, 12/30/2022, 10/14/2020, Additional history exists Potassium Level 05/05/2024 05/05/2023, 04/06, 04/06/2023, Additional history exists Sodium Level 05/05/2024 05/05/2023, 12/06, 10/14/2020, Additional history exists DTaP,Tdap,and Td Vaccines (3 - Td or Tdap) 09/16/2025 09/16/2015, 09/22/2006 Fasting Glucose for Diabetes Screening 05/05/2026 05/05/2023, 12/30/2022, 10/14/2020, Additional history exists Colonoscopy 07/21/2026 07/21/2016 Colorectal Cancer Screening 07/21/2026 Zoster Vaccines Completed 10/28/2021, 08/19/2021 Influenza Vaccine Completed 06/17/2023, , 06/18/2021, Additional history exists Pneumococcal vaccine (0-64 years) Aged Out No longer eligible based on patient's age to complete this topic Medical Devices Implanted Type Area Conditioner Tumbler Operator Device Identifier Shelf Expiration Date Model / Serial / Lot Hardware E.G. Pins/Screws/R ods Hardware e.g. pins/screws/ rods Left: Ankle Description:2 screws in left ankle Procedures Procedure Name Priority Date/Time Associated Diagnosis Comments EXTI BASIC METABOLIC PANEL, S/P Routine 05/05/2023 6:21 AM CDT BI BREAST SCREENING BILATERAL RAD - Routine (most inpatients and all outpatients) 07/11/2019 2:48 PM [employer] Screening Mammogram Breast Cancer THINPREP DIAGNOSTIC HPV REFLEX Routine 06/29/2018 9:48 AM CDT Abnormal Pap Smear Cervix LIPID PANEL, S Routine 06/29/2018 9:36 AM CDT Screening Lipid from Last 3 Months or Most Recently Relevant to Health Maintenance Results * BI Breast Screening Bilateral (07/11/2019 2:48 PM [employer]) Anatomical Region Laterality Modality Breast, Breast Imaging RST L OS, Breast Imaging ARZ LOS, Breast Imaging FLA LOS Bilateral Mammography 07/11/2019 3:39 PM [employer] Impressions 07/11/2019 3:40 PM [employer] Negative. RECOMMENDATION: ??Annual Screening Mammogram ASSESSMENT: ??BI-RADS: 1: Negative. Narrative 07/11/2019 3:40 PM [employer] EXAM: ??BI BREAST SCREENING BILATERAL Current study [...] Screening Mammogram ASSESSMENT: BI-RADS: 1: Negative. Kailey BUSTAMANTE BI P ROCEDURES * ThinPrep Diagnostic HPV Reflex (06/29/2018 9:48 AM CDT) 07/04/2018 9:02 AM T [facility] Report electronically signed by KATERIN Peterson(ASCP) I verify that I have examined all relevant slides/materials for the specimen(s) and rendered or confirmed the diagnosis. 07/04/2018 9:02 AM T [facility] Gross Description Received specimen in a ThinPrep vial. 07/04/2018 9:02 AM T [facility] Pap Test Source Cervical/Endocervi [place] 07/04/2018 9:02 AM T [facility] Clinical History ablation 07/04/20 18 9:02 AM T [facility] Menstrual Status(LMP, PM, ) ablation 07/04/2018 9:02 AM T [facility] Hormone Therapy/Contracep tives none 07/04/2018 9:02 AM CDT [facility] Interpretation Cervical/Endocervi [place] ??(ThinPrep): Satisfactory for Evaluation Endocervical/trans formation zone components absent Negative for Intraepithelial Lesion or Malignancy High Risk HPV Testing results are NEGATIVE. HPV by Leather Patcher-Medi ated Amplification ??(TMA) for E6/E7 viral messenger RNA (mRNA) is an in-vitro diagnostic test for the detection of 14 high-risk Human Papilloma (HPV) types (16, 18, 31, 33, 35, 39, 45, 51, 52, 56, 58, 59, 66, and 68) in cervical specimens. Additional testing performed at [facility], [address] [place] [id number]. 07/04/2018 9:02 AM CDT [facility] Varies (Cervix/Endocerv ix) 06/29/2018 9:48 AM CDT 06/29/2018 2:04 PM CDT Kailey Osei M.D. LAB PAP PATHDX ORDERABLES [facility] [address] [place] [address], [facility] * Lipid Panel (06/29/2018 9:36 AM CDT) Cholesterol, Total 192 mg/dL 2017 1:[address] [facility] Comment: ----REFERENCE VALUE---- Desirable: < 200 Borderline high: 200 - 239 High: > or = 240 Triglycerides 139 mg/dL 06/29/2018 1:52 PM CDT [facility] Comment: ----REFERENCE VALUE---- Normal: <150 Borderline high: 150-199 High: 200-499 Very high: > or =500 Cholesterol, HDL, S 51 >=50 mg/dL 06/29/2018 1:[address] [facility] Calculated LDL 113 mg/dL 06/29/2018 1:[address] [facility] Comment: ----REFERENCE VALUE---- Desirable: <100 Above Desirable: 100-129 Borderline high: 130-159 High: 160-189 Very high: > or =190 Cholesterol, Non-HDL, Calculated 141 mg/dL 06/29/2018 1:52 PM CDT [facility] Comment: ----REFERENCE VALUE---- Desirable: <130 Above Desirable: 130-159 Borderline high: 160-189 High: 190-219 Very high: > or =220 Blood (Blood, Venous) 06/29/2018 9:36 AM CDT 06/29/2018 1:04 PM CDT Kailey Osei M.D. LAB BLOO D ADD-ON [facility] [address] [place] [address], [facility] from Last 3 Months or Most Recently Relevant to Health Maintenance Care Teams School Athletic Director Relationship Specialty Start Date End Date Elsewhere, Pcp PCP - General Family Medicine 06/23/21
--- OUTSIDE RECORDS SUMMARY | 2023-12-29 08:33 | XMS_ITS | Encounter Summary ---
Author Name Unknown Organization [facility] Address [address] [place] [address] Care Team Providers Care Line Erector Name Role Phone Elsewhere, Pcp Primary Care Provider Unavailabl e Encounter Details Date Type Department Care Team (Late st Contact Info) Description 12/18/2023 CPAP Download Remote Patient Monitoring [facility] [address] [place] [address] [facility], Provider Social History Tobacco Use Types Packs/Day [...] than three times a week 07/11/2019 Attends Hinduism Services More than 4 times per year [...] Answer Date Recorded PHQ-2 Score 0 11/14/2019 [facility] [place] of Occupat ional Health - Occupational Stress [...] Sex Assigned at Female 09/19/2018 9:28 AM FIRE DEPARTMENT MARINE ENGINEER Gender Identity Female 09/19/2018 9:28 AM FIRE DEPARTMENT MARINE ENGINEER Sexual Orientation Straight 09/19/2018 9: 28 AM FIRE DEPARTMENT MARINE ENGINEER documented as of this encounter Plan of Treatment Not on file documented as of this encounter Visit Diagnoses Not on filedocumented in this encounter Additional Health Concerns Assessment Noted Time PHQ-9 Depression Total Score: 3 06/08/20 17 8:25 AM CDT documented as of this encounter Care Teams Line Erector Relationship Specialty Start Date End Date Elsewhere, Pcp PCP - General Family Medicine 06/23/21 documented as of this encounter
--- NOTE | 2023-12-29 08:45 | US_ITS ---
Patient: LELAND ORTIZ Facility:?[facility] Patient ID:?[id number] Site Patient ID:?[id number]. Site :?[id number] Study:?US-Extremity Bilateral LEV INSF-12/29/2023 12:02:13 PM Ordering Physician:?ISMAEL COLON M.D. Final Report: INDICATION: Chronic venous insufficiency COMPARISON: None available TECHNIQUE: A duplex venous ultrasound exam was performed of both lower extremities using kirk scale imaging, color Doppler and spectral Doppler analysis. Pre- and post compression images were obtained per site specific protocol. The size of the superficial veins were recorded, along with reflux times if applicable. FINDINGS: In the right lower extremity deep venous system, there is normal compressibility, color Doppler venous blood flow and augmentation within the common femoral vein, superficial femoral vein, popliteal vein, and posterior tibial veins. The greater saphenous vein has been removed. Lesser saphenous vein is competent. In the left lower extremity deep venous system, there is normal compressibility, color Doppler venous blood flow and augmentation within the common femoral vein, superficial femoral vein, popliteal vein, and posterior tibial veins. The greater saphenous vein has been removed. The lesser saphenous vein is not visualized. IMPRESSION: 1. No deep venous thrombosis. 2. Postprocedural changes to the GSV bilaterally. Normal incompetence of the lesser saphenous vein within the right calf. Dictated by Ismael Paez MD @ 12/30/2023 5:41:43 AM Signed by:?Ismael Paez MD @12/30/2023 5:41:43 AM (Electronic Signature)
== END 2023-12-29 08:31 | disposition home or self-care (01) ==
LOC: US 08:30
PROVIDERS: PCP Family Medicine; Visit Provider Family Medicine
DX: I87.2 Venous insufficiency (chronic) (peripheral) (principal)
CPT/HCPCS: 93970

== ENCOUNTER 2024-06-27 11:45 | Outpatient (CLI) | payer OTHER, SELFPAY ==
--- OUTSIDE RECORDS SUMMARY | 2024-06-27 11:47 | XMS_ITS ---
Author Organization [facility] Address [address] [place] [address] Care Team Providers Care Director Of Industrial Relations Name Role Phone Unavailable Unavailable Unavailable Surgery Details Not on file Complications Check Surgery Details section. Procedure Estimated Blood Loss Check Surgery Details section. Procedure Findings Check Surgery Details section. Procedure Specimens Taken Check Surgery Details section.
--- OUTSIDE RECORDS SUMMARY | 2024-06-27 11:47 | XMS_ITS | Clinical Summary ---
Author Organization [facility] Address [address] [place] [address] Care Team Providers Care Staffing Coordinator Name Role Phone Elsewhere, Pcp Primary Care Provider Unavailabl e Source Comments Patient records contain information from all sites at [facility]. For routine questions regarding patient records, call [phone] during business hours, M-F 8:00 AM - 5:00 PM Central Time. Record requests for emergency care only can be directed to [phone] at any time.[facility] Allergies Active Allergy Reactions Criticality Noted Date Comments Adhesive Tape-Silicones Hives (Reselect Reaction) 01/06/2012 Aspirin GI intolerance Medium 09/19/2018 Stomach upset Other reaction(s): GI Upset Azithromycin Rash 01/27/2012 achy joints Cat Dander Itching 01/06/2012 Metformin Diarrhea 09/16/2015 Medications acetaminophen (TYLENOL) 500 mg tablet Take 500 mg by mouth 2 (two) times a day as needed. Active Eliquis 5 mg tablet Take 5 mg by mouth 2 (two) times a day. Active metoprolol tartrate (LOPRESSOR) 50 mg tablet Take 25 mg by mouth. 05/05/2023 Active valsartan-hydroC HLOROthiazide (DIOVAN-HCT) 320-25 mg per tablet Take 1 tablet by mouth daily. Active Active Problems Problem Noted Date Diagnosed Date [facility] (Current) Anticoagulant Treatment 03/06 Monitoring For Therapeutic Drug Therapy [Z51.81] 01/31/2019 Atrial Fibrillation Unspecified 01/27/2019 Anticoagulant Therapy 01/27/2019 Hypertension Essential Primary 01/18/2010 Overview (01/26/2017): Hypertension Gout Carpal Tunnel Syndrome Bilateral Overview (06/29/2018): treated conservatively Varicose Vein Lower Extremity With Pain Bilatera l Encounters Date Type Department Care Team Description 06/21/2024 CPAP Download Remote Patient Monitoring [facility] [address] [place] [address] [facility], Provider, 05/21/2024 CPAP Download Remote Patient Monitoring [facility] [address] [place] [address] [facility], Provider, 04/20/2024 CPAP Download Remote Patient Monitoring [facility] [address] [place] [address] [facility], Provider, from Last 3 Months Immunizations Name Administration Dates Next Due DT, Pediatric 09/22/2006 Influenza, Injectable, Quadrivalent 06/07,06/24/2016,06/26/2015,2013 Influenza, Unspecified 06/24/2016 Tdap 09/16/2015 influenza trivalent vaccine (6 months and older)(PF) 06/15/2018 influenza vaccine quad (FLUZONE/FLUARIX) (6 months and [...] Answer Date Recorded PHQ-2 Score 0 11/14/2019 [facility] [place] of Occupat ional Health - Occupational Stress [...] degree: occupational, technical, or vocational program 07/11/2019 Comments No Sex and Gender Information Value Date Recorded Sex Assigned at Female 09/19/2018 9:28 AM HOSPITAL STAFF PHARMACIST Legal Sex Female 11:08 PM HOSPITAL STAFF PHARMACIST Gender Identity Female 09/19/2018 9:28 AM HOSPITAL STAFF PHARMACIST Sexual Orientation Straight 09/19/2018 9: 28 AM HOSPITAL STAFF PHARMACIST Last Filed Vital Signs Vital Sign Reading Time Taken Comments Blood Pressure 130/72 11/14/2019 4:04 PM CDT Pulse 68 11/14/2019 4:04 PM CDT Temperature 36.4 ??C (97.5 ??F) 11/14/2019 4:04 PM CD T Respiratory Rate 18 11/14/2019 4:04 PM CDT Oxygen Saturation 98% 06/08/2019 11:14 AM CDT Inhaled Oxygen Concentration - - Weight 134 kg (294 lb 15.6 oz) 08/17/2023 9:59 A M HOSPITAL STAFF PHARMACIST Height 171 cm (5' 7.32) 08/17/2023 9:59 AM HOSPITAL STAFF PHARMACIST Body Mass Index 45.76 08/17/2023 9:59 AM HOSPITAL STAFF PHARMACIST Plan of Treatment Health Maintenance Due Date Last Done Comments CT Colonography 1965 Cologuard 1965 FIT 1965 HIV Screening 1965 Hepatitis C Screening 1965 Office Visit for Blood Pressure Check / Re-check 1965 Hepatitis B Vaccines (1 of 3 - 19+ 3-dose series) 1984 Mammogram 07/11/2020 07/11/2019, 06/07, 06/08/2017, Additional history exists Cervical Cancer Screening 06/29/20232017, 06/29/2018, 06/08/2017, Additional history exists Lipid (Cholesterol) Screening 06/29/2023 06/29/2018, 06/16/2017, 03/21/2014 Depression Screening (Annual PHQ-2) 09/06/2023 Creatinine Level (Kidney Function Test) 05/05/2024 05/05/2023, 12/30/2022, 10/14/2020, Additional history exists Potassium Level 05/05/2024 05/05/2023, 04/06, 04/06/2023, Additional history exists Sodium Level 05/05/2024 05/05/2023, 12/06, 10/14/2020, Additional history exists COVID-19 Vaccine ( season) 2024 12/21/2020, 11/30/2020 Influenza Vaccine (#1) 2024 , 06/11/2022, 06/18/2021, Additional history exists DTaP,Tdap,and Td Vaccines (3 - Td or Tdap) 09/16/2025 09/16/2015, 09/22/2006 Fasting Glucose for Diabetes Screening 05/05/2026 05/05/2023, 12/30/2022, 10/14/2020, Additional history exists Colonoscopy 07/21/2026 07/21/2016 Colorectal Cancer Screening 07/21/2026 Zoster Vaccines Completed 10/28/2021, 08/19/2021 Pneumococcal vaccine (0-64 years) Aged Out No longer eligible based on patient's age to complete this topic Medical Devices Implanted Type Area Comparator Operator Device Identifier Shelf Expiration Date Model / Serial / Lot Hardware E.G. Pins/Screws/R ods Hardware e.g. pins/screws/ rods Left: Ankle Description:2 screws in left ankle Procedures Procedure Name Priority Date/Time Associated Diagnosis Comments BASIC METABOLIC PANEL, S/P Routine 07/17/2019 3:29 PM HOSPITAL STAFF PHARMACIST Insufficiency Renal BI BREAST SCREENING BILATERAL RAD - Routine (most inpatients and all outpatients) 07/11/2019 2:48 PM HOSPITAL STAFF PHARMACIST Screening Mammogram Breast Cancer THINPREP DIAGNOSTIC HPV REFLEX Routine 06/29/2018 9:48 AM CDT Abnormal Pap Smear Cervix LIPID PANEL, S Routine 06/29/2018 9:36 AM CDT Screening Lipid from Last 3 Months or Most Recently Relevant to Health Maintenance Results * (ABNORMAL) Basic Metabolic Panel (07/17/2019 3:29 PM HOSPITAL STAFF PHARMACIST) Potassium, S 4.2 3.6 - 5.2 mmol/L 07/17/2019 6:37 PM HOSPITAL STAFF PHARMACIST OWAT Sodium, S 141 135 - 145 mmol/L 07/17/2019 6:37 PM HOSPITAL STAFF PHARMACIST OWAT Chloride, S 99 98 - 107 mmol/L 07/17/2019 6:37 PM HOSPITAL STAFF PHARMACIST OWAT Bicarbonate, S 32(H) 22 - 29 mmol/L 07/17/2019 6:37 PM HOSPITAL STAFF PHARMACIST OWAT Anion Gap 10 7 - 15 07/17/2019 6:37 PM HOSPITAL STAFF PHARMACIST OWAT BUN (Blood Urea Nitrogen), S 16 6 - 21 mg/dL 07/17/2019 6:37 PM HOSPITAL STAFF PHARMACIST OWAT Creatinine 0.85 0.59 - 1.04 mg/dL 07/17/2019 6:37 PM HOSPITAL STAFF PHARMACIST OWAT eGFR-Non Black/ 78 >=60 mL/min/BSA 07/17/2019 6:37 PM HOSPITAL STAFF PHARMACIST OWAT Comment: ----ADDITIONAL INFORMATION---- Estimated GFR calculated using the 2009 CKD_EPI creatinine equation. eGFR-Black/Afric an Kazakh 90 >=60 mL/min/BSA 07/17/2019 6:37 PM HOSPITAL STAFF PHARMACIST OWAT Comment: ----ADDITIONAL INFORMATION---- Estimated GFR calculated using the 2009 CKD_EPI creatinine equation. Calcium, Total, S 9.1 8.6 - 10.0 mg/dL 07/17/2019 6:37 PM HOSPITAL STAFF PHARMACIST OWAT Glucose, S 77 70 - 140 mg/dL 07/17/2019 6:37 PM HOSPITAL STAFF PHARMACIST OWAT Blood (Blood, Venous) 07/17/2019 3:29 PM HOSPITAL STAFF PHARMACIST 07/17/2019 5:59 PM HOSPITAL STAFF PHARMACIST Kailey Osei M.D. LAB BLOOD ADD-ON Final Result [facility] [address] [place] [address], [facility] [address] [place] [address] * BI Breast Screening Bilateral (07/11/2019 2:48 PM HOSPITAL STAFF PHARMACIST) Anatomical Region Laterality Modality Breast, Breast Imaging RST L OS, Breast Imaging ARZ LOS, Breast Imaging FLA LOS Bilateral Mammography 07/11/2019 3:39 PM HOSPITAL STAFF PHARMACIST Impressions 07/11/2019 3:40 PM HOSPITAL STAFF PHARMACIST Negative. RECOMMENDATION: ??Annual Screening Mammogram ASSESSMENT: ??BI-RADS: 1: Negative. Narrative 07/11/2019 3:40 PM HOSPITAL STAFF PHARMACIST EXAM: ??BI BREAST SCREENING BILATERAL Current study [...] Screening Mammogram ASSESSMENT: BI-RADS: 1: Negative. Kailey Osei M.D. IM BI PROCEDURE S Final Result * ThinPrep Diagnostic HPV Reflex (06/29/2018 9:48 AM CDT) 07/04/2018 9:02 AM T [facility] Report electronically signed by KATERIN Peterson(ASCP) I verify that I have examined all relevant slides/materials for the specimen(s) and rendered or confirmed the diagnosis. 07/04/2018 9:02 AM CDT [facility] Gross Description Received specimen in a ThinPrep vial. 07/04/2018 9:02 AM CDT [facility] Pap Test Source Cervical/Endocervi alberta 07/04/2018 9:02 AM T [facility] Clinical History ablation 07/04/20 18 9:02 AM CDT [facility] Menstrual Status(LMP, PM, ) ablation 07/04/2018 9:02 AM CDT [facility] Hormone Therapy/Contracep tives none 07/04/2018 9:02 AM CDT [facility] Interpretation Cervical/Endocervi alberta ??(ThinPrep): Satisfactory for Evaluation Endocervical/trans formation zone components absent Negative for Intraepithelial Lesion or Malignancy High Risk HPV Testing results are NEGATIVE. HPV by Tool Dresser-Medi ated Amplification ??(TMA) for E6/E7 viral messenger RNA (mRNA) is an in-vitro diagnostic test for the detection of 14 high-risk Human Papilloma (HPV) types (16, 18, 31, 33, 35, 39, 45, 51, 52, 56, 58, 59, 66, and 68) in cervical specimens. Additional testing performed at [facility], [address] [place] [address]. 07/04/2018 9:02 AM CDT [facility] Varies (Cervix/Endocerv ix) 06/29/2018 9:48 AM CDT 06/29/2018 2:04 PM CDT us Kailey Osei M.D. LAB PAP PATHDX O RDERABLES Final Result [facility] [address] [place] [address], [facility] * Lipid Panel (06/29/2018 9:36 AM CDT) Cholesterol, Total 192 mg/dL 2017 1:52 PM CDT [facility] Comment: ----REFERENCE VALUE---- Desirable: < 200 Borderline high: 200 - 239 High: > or = 240 Triglycerides 139 mg/dL 06/29/2018 1:52 PM CDT [facility] Comment: ----REFERENCE VALUE---- Normal: <150 Borderline high: 150-199 High: 200-499 Very high: > or =500 Cholesterol, HDL, S 51 >=50 mg/dL 06/29/2018 1:52 PM CDT [facility] Calculated LDL 113 mg/dL 06/29/2018 1:52 PM CDT [facility] Comment: ----REFERENCE VALUE---- Desirable: <100 Above Desirable: 100-129 Borderline high: 130-159 High: 160-189 Very high: > or =190 Cholesterol, Non-HDL, Calculated 141 mg/dL 06/29/2018 1:52 PM CDT [facility] Comment: ----REFERENCE VALUE---- Desirable: <130 Above Desirable: 130-159 Borderline high: 160-189 High: 190-219 Very high: > or =220 Blood (Blood, Venous) 06/29/2018 9:36 AM CDT 06/29/2018 1:04 PM CDT Kailey Osei M.D. LAB BLOOD ADD-ON Final Result [facility] [address] [place] [address], [facility] from Last 3 Months or Most Recently Relevant to Health Maintenance Insurance [employer] Care Teams Staffing Coordinator Relationship Specialty Start Date End Date Elsewhere, Pcp PCP - General Family Medicine 06/23/21
--- OUTSIDE RECORDS SUMMARY | 2024-06-27 11:47 | XMS_ITS | Encounter Summary ---
Author Organization [facility] Address [address] [place] [address] Care Team Providers Care Bag Turner Name Role Phone Elsewhere, Pcp Primary Care Provider Unavailabl e Encounter Details Date Type Department Care Team (Late st Contact Info) Description 05/21/2024 CPAP Download Remote Patient Monitoring [facility] [address] [place] [address] [facility], Provider, Social History Tobacco Use Types Packs/Day Years [...] than three times a week 07/11/2019 Attends Druze Services More than 4 times per year [...] Answer Date Recorded PHQ-2 Score 0 11/14/2019 [facility] [place] of Occupat ional Health - Occupational Stress [...] Sex Assigned at Female 09/19/2018 9:28 AM MESSENGER OFFICE Legal Sex Female 11:08 PM MESSENGER OFFICE Gender Identity Female 09/19/2018 9:28 AM MESSENGER OFFICE Sexual Orientation Straight 09/19/2018 9: 28 AM MESSENGER OFFICE documented as of this encounter Plan of Treatment Not on file documented as of this encounter Visit Diagnoses Not on filedocumented in this encounter Additional Health Concerns Assessment Noted Time PHQ-9 Depression Total Score: 3 06/08/20 17 8:25 AM CDT documented as of this encounter Care Teams Bag Turner Relationship Specialty Start Date End Date Elsewhere, Pcp PCP - General Family Medicine 06/23/21 documented as of this encounter
--- OUTSIDE RECORDS SUMMARY | 2024-06-27 11:47 | XMS_ITS | Encounter Summary ---
Author Organization [facility] Address [address] [place] [address] Care Team Providers Care Bi Developer Name Role Phone Elsewhere, Pcp Primary Care Provider Unavailabl e Encounter Details Date Type Department Care Team (Late st Contact Info) Description 06/21/2024 CPAP Download Remote Patient Monitoring [facility] [address] [place] [address] [facility], Provider, Social History Tobacco Use [...] Answer Date Recorded PHQ-2 Score 0 11/14/2019 [facility] [place] of Occupat ional Health - Occupational Stress [...] Sex Assigned at Female 09/19/2018 9:28 AM TOP LOADER Legal Sex Female 11:08 PM TOP LOADER Gender Identity Female 09/19/2018 9:28 AM TOP LOADER Sexual Orientation Straight 09/19/2018 9: 28 AM TOP LOADER documented as of this encounter Plan of Treatment Not on file documented as of this encounter Visit Diagnoses Not on filedocumented in this encounter Additional Health Concerns Assessment Noted Time PHQ-9 Depression Total Score: 3 06/08/20 17 8:25 AM CDT documented as of this encounter Care Teams Bi Developer Relationship Specialty Start Date End Date Elsewhere, Pcp PCP - General Family Medicine 06/23/21 documented as of this encounter
--- OUTSIDE RECORDS SUMMARY | 2024-06-27 11:47 | XMS_ITS | Encounter Summary ---
Author Organization [facility] Address [address] [place] [address] Care Team Providers Care Enrollment Services Vice President Name Role Phone Elsewhere, Pcp Primary Care Provider Unavailabl e Encounter Details Date Type Department Care Team (Late st Contact Info) Description 02/18/2024 CPAP Download Remote Patient Monitoring [facility] [address] [place] [address] [facility], Provider, Social History Tobacco Use Types Packs/Day [...] than three times a week 07/11/2019 Attends Zoroastrian Services More than 4 times per year [...] Answer Date Recorded PHQ-2 Score 0 11/14/2019 [facility] [place] of Occupat ional Health - Occupational Stress [...] Sex Assigned at Female 09/19/2018 9:28 AM PETROLEUM REFINERY OPERATOR Legal Sex Female 11:08 PM PETROLEUM REFINERY OPERATOR Gender Identity Female 09/19/2018 9:28 AM PETROLEUM REFINERY OPERATOR Sexual Orientation Straight 09/19/2018 9: 28 AM PETROLEUM REFINERY OPERATOR documented as of this encounter Plan of Treatment Not on file documented as of this encounter Visit Diagnoses Not on filedocumented in this encounter Additional Health Concerns Assessment Noted Time PHQ-9 Depression Total Score: 3 06/08/20 17 8:25 AM CDT documented as of this encounter Care Teams Enrollment Services Vice President Relationship Specialty Start Date End Date Elsewhere, Pcp PCP - General Family Medicine 06/23/21 documented as of this encounter
--- OUTSIDE RECORDS SUMMARY | 2024-06-27 11:47 | XMS_ITS | Clinical Summary ---
Author Organization [facility] Address [place], [place] [address] Care Team Providers Care Postal Carrier Name Role Phone Ismael Louise MD Primary Care Provider + Allergies Active Allergy Reactions Criticality Noted Date Comments Adhesive Tape-Silicones Hives 01/06/2012 Aspirin GI Upset 02/17/2019 Cat Dander Itching 01/06/2012 Metformin Diarrhea 09/16/2015 Azithromycin Rash 09/24/2014 Medications Medication Sig Dispensed Refills Start Date End Date Status apixaban (ELIQUIS) 5 mg tabletIndications:PAF (paroxysmal atrial fibrillation) (HC) Take 1 Tablet (5 mg) by mouth 2 times daily. 60 Tablet 9 01/30/2022 Active valsartan-hydrochloro thiazide (DIOVAN HCT) 320-25 mg per tablet Take 1 Tablet by mouth once daily. 11/17/2022 Active metoprolol tartrate (LOPRESSOR) 25 mg tabletIndications:S/P ablation of atrial fibrillation Take 2 Tablets (50 mg) by mouth two times daily. 01/28/2024 Active metFORMIN (GLUCOPHAGE XR) 500 mg Extended-Release tablet TAKE TWO TABLETS BY MOUTH EVERY DAY - START WITH ONE TABLET BY MOUTH EVERY DAY FOR 2 WEEKS THEN TAKE TWO TABLETS BY MOUTH EVERY DAY, TAKE WI 01/11/2024 Active clobetasol (TEMOVATE) 0.05 % creamIndications:Vari cose veins of left leg with edema Apply topically to affected area(s) two times daily. APPLY TO THE AFFECTED AREA FOR 2 WEEKS TWICE DAILY, THEN STOP FOR 2 WEEKS, THEN CONTINUE ON THE 2 WEEKS ON, THEN 2 WEEKS OFF 60 g 5 04/25/2024 Active Active Problems Problem Noted Date Diagnosed Date Skin lesion 04/20/2018 Personal history of colonic polyps 06/11/2016 Varicose veins of left leg with edema 05/22/2016 Lumbar disc herniation with radiculopathy 2015 HTN (hypertension) 09/24/2014 Obesity 09/24/2014 Encounters Date Type Department Care Team Description 05/16/2024 Telephone [facility] [address] [place] [address] Xavi Mae MD Procedure 04/25/2024 1:30 PM CDT Office Visit [facility] [address] [place] [phone] Xavi Mae MD CV General Cardiology Est (OV,FU imaging prior 03/28 at [facility] location DX:Varicose veins of left leg with edema; pt states that she needs another appt with dr. mea before treatment can begin ) 04/25/2024 Orders Only [facility] [address] [place] [address] Xavi Mae MD <No scans attached> 04/25/2024 Travel from Last 3 Months Immunizations Name Administration Dates Next Due Influenza, [...] Given: Yes Alcohol Use Standard Drinks/Week Comments Not Currently 0 (1 standard drink = 0.6 oz [...] Outcome GA Total Labor Labor/2nd/3rd Weight Sex Type Anes PTL Amalia A1 A5 Name Clin Term SAB Last Filed Vital Signs Vital Sign Reading Time Taken Comments Blood Pressure 138/72 04/25/2024 1:23 PM CDT Pulse 71 04/25/2024 1:23 PM CDT Temperature 36.6 ??C (97.9 ??F) 05/05/2023 10:49 AM C DT Respiratory Rate 18 05/05/2023 11:45 AM CDT Oxygen Saturation 100% 04/25/2024 1:23 PM CDT Inhaled Oxygen Concentration - - Weight 152 kg (335 lb) 04/25/2024 1:23 PM CDT Height 171.5 cm (5' 7.52) 04/25/2024 1:23 PM CD T Body Mass Index 51.66 04/25/2024 1:23 PM CDT Plan of Treatment Upcoming Encounters Date Type Department Care Team (Late st Contact Info) Description 08/24/2024 3:30 PM PEANUT ROASTER Office Visit [facility] [address] [facility] [address] [place], [place] [phone] Shaun Hernandez MD [address] [facility] [address] [place], [place] [id number] Health Maintenance Due Date Last Done Comments HIV for age 15-65 1980 Hepatitis C screening for age 18-79 1983 Zoster (shingles) series for age 50+ (1 of 2) 2015 Depression screening for age 12+ 04/02/2017 04/02/2016 Mammogram for age 45-75 05/22/2017 05/22/20 16, 05/23/2015, 05/21/2014 Lipids for age 45-75 05/22/2021 05/22/2016, 05/02/20 15 COVID-19 vaccine series ( season) 2024 12/21/2020, 11/30/2020 Influenza for age 50-64 05/07/2024 06/24/2016 Pap test for age 21-65 10/24/2024 , 10/24/2021, 03/06/2014 (Completed outside of [facility]) BMI (ht and wt on same day) for age 18+ 04/25/2025 04/25/2024, 06/24/2023, 12/04/2021, Additional history exists Tetanus booster 09/16/2025 09/16/2015 Colonoscopy through age 75 11/12/202611/12, 06/10/2016, 06/10/2016, Additional history exists Tdap Completed 09/16/2015 Pneumococcal series for age 6-64 Aged Out No longer eligible based on patient's age to complete this topic Procedures Procedure Name Priority Date/Time Associated Diagnosis Comments COLONOSCOPY 11/12/2021 7:24 AM PEANUT ROASTER HPV HIGH RISK Routine 10/24/2021 10:15 AM PEANUT ROASTER XR MAMMO BILAT SCREEN FFDM (IA) Routine 05/22/2016 10:03 AM CDT Visit for screening mammogram LIPID PANEL W REFLEX MEASURED LDL Routine 05/22/2016 9:51 AM CDT [facility] from Last 3 Months or Most Recently Relevant to Health Maintenance Results * COLONOSCOPY (11/12/2021 7:24 AM PEANUT ROASTER) 11/12/2021 7:24 AM PEANUT ROASTER Narrative Transcriptions Bryce Hernandez MD - 11/12/2021 9:04 AM CST Patient Name: Rohini Mckenna Procedure Date: 11/12/2021 Gender: Female Date of : 1965 Admit Type: Ambulatory Procedure: Colonoscopy Proceduralist: Bryce Hernandez [facility] Indications/Pre-Op Diagnosis: High risk colon cancer [...] * HPV HIGH RISK (10/24/2021 10:15 AM PEANUT ROASTER) TYPE 16 Negative Negative 10/28/2021 11:41 AM PEANUT ROASTER [facility] TYPE 18 Negative Negative 10/28/2021 11:41 AM PEANUT ROASTER [facility] OTHER HIGH RISK TYPES Negative Negative 10/28/2021 11:41 AM PEANUT ROASTER [facility] Other (Cervical/Vagina l) 10/24/2021 10:15 AM PEANUT ROASTER 10/27/2021 8:13 AM PEANUT ROASTER Narrative [facility] - 10/28/2021 11:41 AM PEANUT ROASTER HPV types 16, 18, 31, 33, 35, 39, 45, 51, 52, 56, 58, 59, 66 and 68 DNA were undetectable or below the pre-set threshold. Methodology: [employer] [facility] 4800 HPV Test Tracie Guerin MD [facility]CROBIOLOGY [facility] [address] [place] [address], [place] * XR MAMMO BILAT SCREEN FFDM [...] of Computer-Aided Detection. COMPARISON FILMS: Yes 05/23/15 [facility] FINDINGS: ??Mammographically, the breast tissue is almost entirely fat. ??No suspicious masses or microcalcifications. ??Benign appearing calcifications within left breast. Alma Li MD MAMMO * (ABNORMAL) LIPID PANEL W REFLEX MEASURED LDL ([id number]) (05/22/2016 9:51 AM CDT) CHOLESTEROL,TOTAL 197 100 - 199 mg/dL 05/22/2016 11:45 AM CDT [facility] TRIGLYCERIDES 108 <150 mg/dL 05/22/2016 11:45 AM CDT [facility] HDL CHOLESTEROL 46 >40 mg/dL 05/22/2016 11:45 AM CDT [facility] NON-HDL CHOLESTEROL 151(H) <145 mg/dl 05/22/2016 11:45 AM CDT [facility] CHOL/HDL RATIO 4.28 <4.50 05/22/2016 11:45 AM CDT [facility] LDL CHOLESTEROL 129 <=130 mg/dL 05/22/2016 11:45 AM CDT [facility] PATIENT STATUS NOT GIVEN 05/22/2016 11:45 AM CDT [facility] Blood BLOOD SPECIMEN / Unknown Butterfly / Unknown 05/22/2016 9:51 AM CDT 05/22/2016 9:51 AM CDT Vidya Washington JOB PLACEMENT OFFICER [employer] [address] [address] from Last 3 Months or Most Recently [...] Code Status Discussion: Reviewed Preferences Care Teams Postal Carrier Relationship Specialty Start Date End Date Ismael Louise MD [address] [place] [address] PCP - General Family Practice 02/06/21
--- OUTSIDE RECORDS SUMMARY | 2024-06-27 11:47 | XMS_ITS | Encounter Summary ---
Author Organization [facility] Address [address] [place] [address] Care Team Providers Care Supervising Chef Name Role Phone Elsewhere, Pcp Primary Care Provider Unavailabl e Encounter Details Date Type Department Care Team (Late st Contact Info) Description 03/20/2024 CPAP Download Remote Patient Monitoring [facility] [address] [place] [address] [facility], Provider, Social History Tobacco Use Types Packs/Day [...] than three times a week 07/11/2019 Attends Hoah[employer]ism Services More than 4 times per year [...] Answer Date Recorded PHQ-2 Score 0 11/14/2019 [facility] [place] of Occupat ional Health - Occupational Stress [...] Sex Assigned at Female 09/19/2018 9:28 AM BOX STRAPPER Legal Sex Female 11:08 PM BOX STRAPPER Gender Identity Female 09/19/2018 9:28 AM BOX STRAPPER Sexual Orientation Straight 09/19/2018 9: 28 AM BOX STRAPPER documented as of this encounter Plan of Treatment Not on file documented as of this encounter Visit Diagnoses Not on filedocumented in this encounter Additional Health Concerns Assessment Noted Time PHQ-9 Depression Total Score: 3 06/08/20 17 8:25 AM CDT documented as of this encounter Care Teams Supervising Chef Relationship Specialty Start Date End Date Elsewhere, Pcp PCP - General Family Medicine 06/23/21 documented as of this encounter
--- OUTSIDE RECORDS SUMMARY | 2024-06-27 11:47 | XMS_ITS | Encounter Summary ---
Author Organization [facility] Address [address] [place] [address] Care Team Providers Care Seaweed Harvester Name Role Phone Elsewhere, Pcp Primary Care Provider Unavailabl e Encounter Details Date Type Department Care Team (Late st Contact Info) Description 04/20/2024 CPAP Download Remote Patient Monitoring [facility] [address] [place] [address] [facility], Provider, Social History Tobacco Use Types Packs/Day [...] than three times a week 07/11/2019 Attends Jew Services More than 4 times per year [...] Answer Date Recorded PHQ-2 Score 0 11/14/2019 [facility] [place] of Occupat ional Health - Occupational Stress [...] Sex Assigned at Female 09/19/2018 9:28 AM RECOOPERER Legal Sex Female 11:08 PM RECOOPERER Gender Identity Female 09/19/2018 9:28 AM RECOOPERER Sexual Orientation Straight 09/19/2018 9: 28 AM RECOOPERER documented as of this encounter Plan of Treatment Not on file documented as of this encounter Visit Diagnoses Not on filedocumented in this encounter Additional Health Concerns Assessment Noted Time PHQ-9 Depression Total Score: 3 06/08/20 17 8:25 AM CDT documented as of this encounter Care Teams Seaweed Harvester Relationship Specialty Start Date End Date Elsewhere, Pcp PCP - General Family Medicine 06/23/21 documented as of this encounter
--- OUTSIDE RECORDS SUMMARY | 2024-06-27 11:47 | XMS_ITS | Referral Summary ---
Author Organization [facility] Address [address] [place] [address] Care Team Providers Care Art Educator Name Role Phone Elsewhere, Pcp Primary Care Provider Unavailabl e Source Comments Patient records contain information from all sites at [facility]. For routine questions regarding patient records, call [phone] during business hours, M-F 8:00 AM - 5:00 PM Central Time. Record requests for emergency care only can be directed to [phone] at any time.[facility] Encounters Date Type Department Care Team Description 06/21/2024 CPAP Download Remote Patient Monitoring [facility] [address] [place] [address] [facility], ProviderMD 05/21/2024 CPAP Download Remote Patient Monitoring [facility] [address] [place] [address] [facility] 04/20/2024 CPAP Download Remote Patient Monitoring [facility] [address] [place] [phone] [facility], ProviderMD from Last 3 Months Allergies Active Allergy [...] Active Problems Problem Noted Date Diagnosed Date Fdc (Current) Anticoagulant Treatment 03/06 Monitoring For Therapeutic [...] than three times a week 07/11/2019 Attends Pentecostal Services More than 4 times per year 07/11/2019 Active Member of Clubs or Organizations Yes 07/11/2019 Attends Club or Organization Meetings More than 4 times per year 07/11/2019 Marital Status 07/11/2019 AUDIT-C Answer Date Recorded Frequency of Alcohol Consumption 2-4 times a mon 07/11/2019 Average Number of Drinks 1 or 2 019 Frequency of Binge Drinking Never 01/2019 Overall Financial Resource Strain (CARDIA) Answe r Date Recorded Difficulty of Paying Living Expenses Not very [address] 07/11/2019 PHQ-2 Answer Date Recorded PHQ-2 Score 0 11/14/2019 [facility] [place] of Occupat ional Health - Occupational Stress [...] Sex Assigned at Female 09/19/2018 9:28 AM METER MECHANIC Legal Sex Female 11:08 PM METER MECHANIC Gender Identity Female 09/19/2018 9:28 AM METER MECHANIC Sexual Orientation Straight 09/19/2018 9: 28 AM METER MECHANIC Last Filed Vital Signs Vital Sign Reading Time Taken Comments Blood Pressure 130/72 11/14/2019 4:04 PM CDT Pulse 68 11/14/2019 4:04 PM CDT Temperature 36.4 ??C (97.5 ??F) 11/14/2019 4:04 PM CD T Respiratory Rate 18 11/14/2019 4:04 PM CDT Oxygen Saturation 98% 06/08/2019 11:14 AM CDT Inhaled Oxygen Concentration - - Weight 134 kg (294 lb 15.6 oz) 08/17/2023 9:59 A M METER MECHANIC Height 171 cm (5' 7.32) 08/17/2023 9:59 AM METER MECHANIC Body Mass Index 45.76 08/17/2023 9:59 AM METER MECHANIC Plan of Treatment Not on file Medical Devices Implanted Type Area Inbound Sales Manager Device Identifier Shelf Expiration Date Model / Serial / Lot Hardware E.G. Pins/Screws/R ods Hardware e.g. pins/screws/ rods Left: Ankle Description:2 screws in left ankle Procedures Procedure Name Priority Date/Time Associated Diagnosis Comments BASIC METABOLIC PANEL, S/P Routine 07/17/2019 3:29 PM METER MECHANIC Insufficiency Renal BI BREAST SCREENING BILATERAL RAD - Routine (most inpatients and all outpatients) 07/11/2019 2:48 PM METER MECHANIC Screening Mammogram Breast Cancer THINPREP DIAGNOSTIC HPV REFLEX Routine 06/29/2018 9:48 AM CDT Abnormal Pap Smear Cervix LIPID PANEL, S Routine 06/29/2018 9:36 AM CDT Screening Lipid from Last 3 Months or Most Recently Relevant to Health Maintenance Results * (ABNORMAL) Basic Metabolic Panel (07/17/2019 3:29 PM METER MECHANIC) Potassium, S 4.2 3.6 - 5.2 mmol/L 07/17/2019 6:37 PM METER MECHANIC OWAT Sodium, S 141 135 - 145 mmol/L 07/17/2019 6:37 PM METER MECHANIC OWAT Chloride, S 99 98 - 107 mmol/L 07/17/2019 6:37 PM METER MECHANIC OWAT Bicarbonate, S 32(H) 22 - 29 mmol/L 07/17/2019 6:37 PM METER MECHANIC OWAT Anion Gap 10 7 - 15 07/17/2019 6:37 PM METER MECHANIC OWAT BUN (Blood Urea Nitrogen), S 16 6 - 21 mg/dL 07/17/2019 6:37 PM METER MECHANIC OWAT Creatinine 0.85 0.59 - 1.04 mg/dL 07/17/2019 6:37 PM METER MECHANIC OWAT eGFR-Non Black/ 78 >=60 mL/min/BSA 07/17/2019 6:37 PM METER MECHANIC OWAT Comment: ----ADDITIONAL INFORMATION---- Estimated GFR calculated using the 2009 CKD_EPI creatinine equation. eGFR-Black/Afric an Citizen Of [place] 90 >=60 mL/min/BSA 07/17/2019 6:37 PM METER MECHANIC OWAT Comment: ----ADDITIONAL INFORMATION---- Estimated GFR calculated using the 2009 CKD_EPI creatinine equation. Calcium, Total, S 9.1 8.6 - 10.0 mg/dL 07/17/2019 6:37 PM METER MECHANIC OWAT Glucose, S 77 70 - 140 mg/dL 07/17/2019 6:37 PM METER MECHANIC OWAT Blood (Blood, Venous) 07/17/2019 3:29 PM METER MECHANIC 07/17/2019 5:59 PM METER MECHANIC us Kailey Osei M.D. LAB BLOOD ADD-ON Final Result [facility] [address] [place] [address], [facility] OWAT [facility] [place] [address] [place] [address] * BI Breast Screening Bilateral (07/11/2019 2:48 PM METER MECHANIC) Anatomical Region Laterality Modality Breast, Breast Imaging RST L OS, Breast Imaging ARZ LOS, Breast Imaging FLA LOS Bilateral Mammography 07/11/2019 3:39 PM METER MECHANIC Impressions 07/11/2019 3:40 PM METER MECHANIC Negative. RECOMMENDATION: ??Annual Screening Mammogram ASSESSMENT: ??BI-RADS: 1: Negative. Narrative 07/11/2019 3:40 PM METER MECHANIC EXAM: ??BI BREAST SCREENING BILATERAL Current study [...] 9:48 AM CDT) 07/04/2018 9:02 AM T [facility] Report electronically signed by KATERIN Peterson(ASCP) I verify that I have examined all relevant slides/materials for the specimen(s) and rendered or confirmed the diagnosis. 07/04/2018 9:02 AM T [facility] Gross Description Received specimen in a ThinPrep vial. 07/04/2018 9:02 AM T [facility] Pap Test Source Cervical/Endocervi alberta 07/04/2018 9:02 AM T [facility] Clinical History ablation 07/04/20 9:02 AM T [facility] Menstrual Status(LMP, PM, ) ablation 07/04/2018 9:02 AM CDT [facility] Hormone Therapy/Contracep tives none 07/04/2018 9:02 AM T [facility] Interpretation Cervical/Endocervi alberta ??(ThinPrep): Satisfactory for Evaluation Endocervical/trans formation zone components absent Negative for Intraepithelial Lesion or Malignancy High Risk HPV Testing results are NEGATIVE. HPV by Flight Security Specialist-Medi ated Amplification ??(TMA) for E6/E7 viral messenger RNA (mRNA) is an in-vitro diagnostic test for the detection of 14 high-risk Human Papilloma (HPV) types (16, 18, 31, 33, 35, 39, 45, 51, 52, 56, 58, 59, 66, and 68) in cervical specimens. Additional testing performed at [facility], [address] [place] [address]. 07/04/2018 9:02 AM CDT [facility] Varies (Cervix/Endocerv ix) 06/29/2018 9:48 AM CDT 06/29/2018 2:04 PM CDT Kailey Osei M.D. LAB PAP PATHDX O RDERABLES Final Result [facility] [address] [place] [address], [facility] * Lipid Panel (06/29/2018 9:36 AM CDT) Cholesterol, Total 192 mg/dL 2017 1:52 PM CDT [facility] Comment: ----REFERENCE VALUE---- Desirable: < 200 Borderline high: 200 - 239 High: > or = 240 Triglycerides 139 mg/dL 06/29/2018 1:52 PM CDT [facility] Comment: ----REFERENCE VALUE---- Normal: <150 Borderline high: 150-199 High: 200-499 Very high: > or =500 Cholesterol, HDL, S 51 >=50 mg/dL 06/29/2018 1:52 PM CDT [facility] Calculated LDL 113 mg/dL 06/29/2018 1:52 PM CDT [facility] Comment: ----REFERENCE VALUE---- Desirable: <100 Above Desirable: 100-129 Borderline high: 130-159 High: 160-189 Very high: > or =190 Cholesterol, Non-HDL, Calculated 141 mg/dL 06/29/2018 1:52 PM CDT [facility] Comment: ----REFERENCE VALUE---- Desirable: <130 Above Desirable: 130-159 Borderline high: 160-189 High: 190-219 Very high: > or =220 Blood (Blood, Venous) 06/29/2018 9:36 AM CDT 06/29/2018 1:04 PM CDT us Kailey Osei M.D. LAB BLOOD ADD-ON Final Result [facility] [address] [place] [address], [facility] from Last 3 Months or Most Recently Relevant to Health Maintenance Insurance [employer] Care Teams Art Educator Relationship Specialty Start Date End Date Elsewhere, Pcp PCP - General Family Medicine 06/23/21
== END 2024-06-27 11:46 | disposition home or self-care (01) ==
PROVIDERS: PCP Family Medicine; Visit Provider Family Medicine
DX: Z01.818 Encounter for other preprocedural examination (principal); I10 Essential (primary) hypertension
CPT/HCPCS: 80048; 85025

== ENCOUNTER 2024-11-07 13:33 | Outpatient (CLI) | payer OTHER, SELFPAY ==
[2024-11-10 08:03] LABS: HPV Source Cervix; HPV, High Risk by TMA Not Detected
== END 2024-11-07 13:34 | disposition home or self-care (01) ==
PROVIDERS: PCP Family Medicine; Visit Provider Obstetrics & Gynecology
DX: Z12.4 Encounter for screening for malignant neoplasm of cervix (principal)
CPT/HCPCS: 87624; 87625; 88141; 88142

== ENCOUNTER 2024-11-17 14:29 | Outpatient (CLI) | payer OTHER, SELFPAY ==
--- NOTE | 2024-11-17 14:40 | CRLHL7_ITS ---
For Patients: As a result of the Century Cures Act, medical imaging exams and procedure reports are released immediately into your electronic medical record. You may view this report before your referring provider. If you have questions, please contact your health care provider. BILATERAL SCREENING MAMMOGRAM WITH COMPUTER-AIDED DETECTION AND TOMOSYNTHESIS TECHNIQUE: CC and MLO views were obtained. These mammographic images have been obtained using full-field digital technique. These mammographic images were interpreted with the benefit of computer-aided detection. Breast Tomosynthesis was used in this interpretation. COMPARISON FILM: 11/12/23, 11/10/22, 09/19/21. FINDINGS: The breasts are almost entirely fatty. IMPRESSION: There is no radiographic evidence for malignancy. ASSESSMENT: BI-RADS Category 2: Benign RECOMMENDATION: Routine screening mammogram in 1 year. A lay language report of this examination will be provided to the patient. Ismael Paez M.D. Diagnostic Radiologist [email or web address] SP/Dictated by: Ismael Paez MD @ 11/20/2024 9:23:00 AM (Electronically Signed)
== END 2024-11-17 14:30 | disposition home or self-care (01) ==
LOC: MAMMO 14:30
PROVIDERS: PCP Family Medicine; Visit Provider Obstetrics & Gynecology
DX: Z12.31 Encounter for screening mammogram for malignant neoplasm of breast (principal)
CPT/HCPCS: 77063; 77067

== ENCOUNTER 2024-12-13 08:52 | Outpatient (CLI) | payer OTHER, SELFPAY | END 2024-12-13 08:53 | disposition home or self-care (01) | PROVIDERS: PCP Family Medicine; Visit Provider Family Medicine | DX: I10 Essential (primary) hypertension (principal); E11.9 Type 2 diabetes mellitus without complications; E66.01 Morbid (severe) obesity due to excess calories; I48.91 Unspecified atrial fibrillation | CPT/HCPCS: 80048; 80061; 84460 ==

== ENCOUNTER 2024-12-28 14:59 | Outpatient (CLI) | payer OTHER, SELFPAY | END 2024-12-28 15:00 | disposition home or self-care (01) | LOC: NFLDUCREF 15:00 | PROVIDERS: PCP Family Medicine; Visit Provider Family Medicine | DX: R10.30 Lower abdominal pain, unspecified (principal); N30.00 Acute cystitis without hematuria | CPT/HCPCS: 86140; 87086 ==

== ENCOUNTER 2025-05-28 16:21 | Outpatient (CLI) | payer OTHER, SELFPAY | END 2025-05-28 16:22 | disposition home or self-care (01) | LOC: NFLDREF 06-04 10:12 | PROVIDERS: PCP Family Medicine; Referring Provider Family Medicine; Visit Provider Family Medicine | DX: R39.89 Other symptoms and signs involving the genitourinary system (principal); N39.0 Urinary tract infection, site not specified | CPT/HCPCS: 87086 ==

== ENCOUNTER 2025-05-31 08:13 | Outpatient (CLI) | payer OTHER, SELFPAY | END 2025-05-31 08:14 | disposition home or self-care (01) | LOC: NFLDREF 08:14 | PROVIDERS: PCP Family Medicine; Visit Provider Family Medicine | DX: R39.89 Other symptoms and signs involving the genitourinary system (principal); N39.0 Urinary tract infection, site not specified | CPT/HCPCS: 82043; 82570 ==